=== PATIENT | female | born 1995 | race Caucasian/White ===

== ENCOUNTER 2020-11-04 21:20 | Emergency (ER) | payer SELFPAY ==
[~2020-11-04] VITALS: Ht 152.4 cm; Wt 53.1 kg
[2020-11-04 21:44] VITALS: Ht 152.4 cm; Wt 53.1 kg
[2020-11-04] MEDS ORDERED: VOLTAREN100 GM TOP (22:59)
[2020-11-04] MEDS ORDERED: KLONOPIN0.5 MG PO (22:59)
[2020-11-04] MEDS ORDERED: MOT600 PO (22:59)
[2020-11-04 23:05] VITALS: BP 123/83
== END 2020-11-04 23:05 | disposition home or self-care (01) ==
LOC: ED 21:20
DX: S46.912A Strain of unspecified muscle, fascia and tendon at shoulder and upper arm level, left arm, initial encounter (principal); F11.23 Opioid dependence with withdrawal; Z98.890 Other specified postprocedural states; X58.XXXA Exposure to other specified factors, initial encounter; Y92.89 Other specified places as the place of occurrence of the external cause; Y93.89 Activity, other specified; Y99.8 Other external cause status